=== PATIENT | female | born 1940 | race Caucasian/White ===

== ENCOUNTER 2017-09-11 13:13 | Outpatient (CLI) | payer MEDICARE, OTHER ==
[2015-09-03 19:06] VITALS: BP 188/72
--- NOTE | 2017-09-11 13:45 | Diagnostic Imaging Report ---
[facility] [address] [facility] [address] [address] Report Submission Date: Sep 11, 2017 1:44:46 PM INTERNIST MEDICAL DOCTOR MD Patient Study Name: SRIKANTH PEDROZA Date: Sep 11, 2017 1:21:34 PM INTERNIST MEDICAL DOCTOR MD Modality Type: CR Gender: F Description: LOWER EXTREMITY : 38 Institution: [facility] Physician: ABELARDO Examination: Plain film left knee History: PATIENT STATES PAIN ON ANTERIOR SIDE OF LEFT KNEE AFTER FALL. NO SURGICAL HISTORY (Hx) / INCREASED PAIN (DICOM Hx) / INCREASED PAIN (Pt comments ) Findings: 3 views of the left knee demonstrates significant tibial spine, medial /lateral, and patellar spurring. Generalized osteopenia. Significant medial articular joint space narrowing. No gross posterior soft tissue abnormality. No joint effusion. Impression: Advanced degenerative changes. No evidence for fracture. Electronically signed on Sep 11, 2017 1:44:46 PM INTERNIST MEDICAL DOCTOR MD by: Kwasi OLIVER
== END 2017-09-11 13:14 ==
LOC: RAD 13:13
PROVIDERS: ATTEND Family Medicine
DX: M25.562 Pain in left knee (principal)
CPT/HCPCS: 73562

== ENCOUNTER 2018-07-05 10:35 | Outpatient (CLI) | payer MEDICARE, OTHER ==
[2015-09-03 19:06] VITALS: BP 188/72
--- NOTE | 2018-07-06 05:05 | Diagnostic Imaging Report ---
IMMANUEL LAYNE [facility] [address] [facility] [address] [address] Report Submission Date: Jul 05, 2018 12:53:19 PM CAR PACKER Patient Study Name: SRIKANTH PEDROZA Date: Jul 05, 2018 10:44:16 AM CAR PACKER Modality Type: DX Gender: F Description: PELVIS : 38 Institution: [facility] Physician: IMMANUEL LAYNE Examination: Plain film pelvis/left hip History: PAIN AND BRUISING PATIENT STATES ACUTE PAIN AND BRUISING X 1 WEEK WITH NO KNOWN INJURY TO LEFT HIP (Hx) Comparison exams: None provided Findings: 2 views of the pelvis and left hip demonstrates normal cortical margins. No fracture. No dislocation. Superior and inferior pubic rami and iliac wings are without abnormality. The lumbar spine degenerative changes. Impression: Degenerative changes. No acute appearing osseous process. Electronically signed on Jul 05, 2018 12:53:19 PM CAR PACKER by: Kwasi OLIVER
== END 2018-07-05 10:36 ==
LOC: RAD 10:35
PROVIDERS: ATTEND Physician Assistant
DX: M25.552 Pain in left hip (principal)

== ENCOUNTER 2018-07-09 15:34 | Observation (INO) | payer MEDICARE, OTHER ==
[2018-07-09] MEDS ORDERED: fentaNYL CITRATE/PF 100 MCG/2 ML INJ. IVP ONE (16:16)
[2018-07-09 16:19] LABS: BASOPHILS % 0.3 (0.0-1.5); MONOCYTES % 8.4 % (0.0-11.0); NEUTROPHILS # 4.4 # k/uL (1.4-7.7)
[2018-07-09 16:34] LABS: eGFR (Non-African) > 60
[2018-07-09] MEDS ORDERED: PHYTONADIONE 10 MG/1 ML SUBCUT ONE (16:42)
--- NOTE | 2018-07-09 17:33 | Diagnostic Imaging Report ---
SOILA QIUROGA (FIXTURE REPAIRER FABRICATOR) - ER [facility] [address] [facility] 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 Femoral artery calcification is present. There is no femur fracture. Left knee degenerative arthritis is present. Edema is present in the subcutaneous fat of the left lower extremity. Ankle osteoarthritis is present. No intramuscular mass is seen. Impression: Subcutaneous edema Degenerative arthritis No fracture the femur or leg bones Vascular calcification Electronically signed on Jul 09, 2018 5:31:53 PM PRIMARY PRODUCTS INSPECTORS by: Chaparro OLIVER
--- NOTE | 2018-07-09 18:13 | ED Physician Documentation ---
General Adult - HISTORIAN Historian: patient - HPI Stated Complaint: Left leg pain Chief Complaint: General Adult Further Comments: yes (77 year old male patient sent in by Dr Salas from [facility] for evaluation of left hip and leg pain. Patient is on coumadin for Afib. Dr Salas concerned from hemstoma in hip; patient denies fall; had negative hip xray last week.) - ROS CONST: no problems EYES/ENT: none CVS/RESP: none GI/: none MS/SKIN/LYMPH: calf pain, joint pain (left hip), leg swelling, leg pain - PAST HX Past History: A-Fib, hypertension, other (depression, ) Allergies/Adverse Reactions: Allergies Allergy/AdvReac Type Severity Reaction Status Date / Time Sulfa (Sulfonamide Allergy Severe Shortness Verified 07/09/18 16:31 Antibiotics) of Breath [Sulfa(Sulfonamide Antibiotics)] Home Medications: Ambulatory Orders Medication Instructions Recorded Acetaminophen [Tylenol] 650 mg PO Q6 07/09/18 Acetaminophen with Codeine 1 each PO TID 07/09/18 [Tylenol with Codeine #3 Tablet] Anastrozole [Arimidex] 1 [place] [address]/09/18 Aspirin 81 mg PO DAILY 07/09/18 Buspirone HCl [BUSPAR] 5 mg PO BID 07/09/18 Furosemide [Lasix] 20 mg PO DAILY 07/09/18 Loratadine 10 mg PO DAILY 07/09/18 Losartan Potassium [Cozaar] 100 mg PO DAILY 07/09/18 Mag Hydrox/Aluminum Hyd/Simeth 30 ml PO DAILY PRN 07/09/18 [Mylanta] Magnesium Hydroxide [Milk of 2,400 mg PO DAILY 07/09/18 Magnesia] Metoclopramide HCl [Reglan] 10 mg PO 1730 07/09/18 Naproxen 500 mg PO BID PRN 07/09/18 Sotalol HCl [Betapace AF] 80 mg PO BID 07/09/18 Warfarin Sodium [Coumadin] 2.5 mg PO [id number] 07/09/18 Warfarin Sodium [Coumadin] 5 mg PO [id number] 07/09/18 amLODIPine BESYLATE [Norvasc] 10 mg PO 0900 07/09/18 diphenhydrAMINE HCL [Benadryl] 25 mg PO HS 07/09/18 - SOCIAL HX Smoking History: non-smoker - FAMILY HX Family History: No - VITAL SIGNS Vital Signs: Vital Signs Temp Pulse Resp BP Pulse Ox 97.9 F 71 19 133/51 97 07/09/18 16:13 07/09/18 16:13 07/09/18 16:13 07/09/18 16:13 07/09/18 16:13 - REVIEWED ASSESSMENTS Nursing Assessment Reviewed: Yes Vitals Reviewed: Yes Progress - Progress Progress: Case reviewed with dr Salas - CT negative for hematoma. Accepted for admission. INR 4.74 - Vit K 5m SQ given; HGB down to 8.6; last draw in January 2018 11.0 Patient has morbid obesity difficult to assess hip and leg area. Will admit for monitoring INR and HGB. Patient agrees to observation admission ED Results Lab/Radiology - Lab Results Lab Results: Lab Results 07/09/18 07/09/18 07/09/18 16:00 16:00 15:40 WBC 7.50 K/ul K/ul (4.00-12.00) RBC 3.30 M/ul L M/ul (3.90-5.20) Hgb 8.6 g/dL L g/dL (12.0-16.0) Hct 26.1 % L % (34.5-46.5) MCV 79.0 fl L fl (80.0-100.0) MCH 26.0 pg L pg (28.0-34.0) MCHC 32.9 g/dL g/dL (30.0-36.0) RDW 14.9 % H % (11.3-14.3) Plt Count 447 K/mm3 H K/mm3 (130-400) Neut % (Auto) 59.2 % % (39.0-79.0) Lymph % (Auto) 23.1 % % (16.0-50.0) Ashe % (Auto) 8.4 % % (0.0-11.0) Eos % (Auto) 9.0 % H % (0.0-6.8) Baso % (Auto) 0.3 (0.0-1.5) Neut # (Auto) 4.4 # k/uL # k/uL (1.4-7.7) Lymph # (Auto) 1.7 # k/uL # k/uL (0.6-4.0) Ashe # (Auto) 0.6 # k/uL # k/uL (0.0-0.9) Eos # (Auto) 0.7 # k/uL H # k/uL (0.0-0.6) Baso # (Auto) 0.0 # k/uL # k/uL (0.0-0.5) PT 50.6 Seconds H Seconds (9.4-11.6) INR 4.74 H (0.9-1.2) Sodium 133 mmol/L L mmol/L (136-145) Potassium 4.5 mmol/L mmol/L (3.5-5.1) Chloride 98 mmol/L mmol/L (98-107) Carbon Dioxide 31 mmol/L H mmol/L (22-30) BUN 19 mg/dL H mg/dL (7-17) Creatinine 0.90 mg/dL mg/dL (0.52-1.04) Estimated Creat Clear 107 Est GFR ( Amer) > 60 (60 - ) Est GFR (Non-Af Amer) > 60 (60 - ) Glucose 119 mg/dL H mg/dL (74-106) Calcium 8.4 mg/dL mg/dL (8.4-10.2) Total Bilirubin 0.4 mg/dL mg/dL (0.2-1.3) AST 32 U/L U/L (15-46) ALT 32 U/L U/L (13-69) Alkaline Phosphatase 118 U/L U/L (38-126) Total Protein 6.4 g/dL g/dL (6.3-8.2) Albumin 3.5 g/dL g/dL (3.5-5.0) - Orders Orders: ED Orders Category Date Time Status CT LEG W/ CONTRAST Routine Exams 07/09/18 Completed CBC/PLATELET/DIFF Stat Lab 07/09/18 15:40 Completed CMP Stat Lab 07/09/18 16:00 Completed PT-INR Stat Lab 07/09/18 16:00 Completed Phytonadione (Vit K1) [Vitamin K] Med 07/09/18 16:42 Discontinued 5 mg SUBCUT NOW ONE fentaNYL CITRATE/PF [Duragesic] Med 07/09/18 16:16 Discontinued 50 mcg IVP NOW ONE General Adult Physical Exam - PHYSICAL EXAM GENERAL APPEARANCE: moderate distress EENT: eye inspection normal, MARTIN RESPIRATORY: no resp distress, chest non-tender, breath sounds normal CVS: heart sounds normal, equal pulses, no murmur, no gallop, PMI nml, no JVD, no friction rub, irregularly irregular rhy ABDOMEN: soft, no organomegaly, normal bowel sounds, no abdominal bruit, no distension, other (morbid obesity) BACK: normal inspection, no CVA tenderness SKIN: normal color, warm/dry, NR, INT, PAL, DR EXTREMITIES: edema (left lateral calf with edema and ecchymosis - PPP 2+ DP and PT; left lateral thigh area with ecchymosis) NEURO: oriented X3, motor nml, sensation nml, mood/affect nml Discharge Clincal Impression: Hypoprothrombinemia, Weakness generalized Anemia Qualifiers: Anemia type: unspecified type Qualified Code(s): D64.9 - Anemia, unspecified Condition: Stable Disposition: ADMITTED INPATIENT Decision to Admit: [id number] Decision Time: 18:00
[2018-07-09 19:12] VITALS: BMI 42.4
[2018-07-09] MEDS: traMADol HCL 50 MG TABLET PO PRN (21:28)
[2018-07-10] MEDS: ACETAMINOPHEN 325 MG TABLET PO PRN ×2 (00:05→07:15)
[2018-07-10] MEDS: traMADol HCL 50 MG TABLET PO PRN (05:03)
[2018-07-10 07:41] LABS: BASOPHILS % 0.3 (0.0-1.5); EOSINOPHILS % 5.6 % (0.0-6.8); MEAN CORPUSCULAR HEMOGLOBIN 25.6 pg (28.0-34.0); NEUTROPHILS # 7.2 # k/uL (1.4-7.7)
[2018-07-10] MEDS ORDERED: ASPIRIN EC 81 MG TABLET.DR ONE (08:49)
[2018-07-10] MEDS ORDERED: LORATADINE 10 MG TABLET PO SCH (09:00)
[2018-07-10] MEDS ORDERED: amLODIPine BESYLATE 5 MG TABLET PO SCH (09:00)
[2018-07-10] MEDS ORDERED: ASPIRIN 81 MG CHEW TAB PO SCH (09:00)
[2018-07-10] MEDS ORDERED: LOSARTAN POTASSIUM 50 MG TABLET PO SCH (09:00)
[2018-07-10] MEDS ORDERED: SOTALOL HCL 80 MG TABLET PO SCH (09:00)
[2018-07-10] MEDS ORDERED: BUSPIRONE HCL 5 MG TABLET PO SCH (09:00)
[2018-07-10] MEDS ORDERED: ACETAMINOPHEN WITH CODEINE 300MG/30MG TABLET PO PRN (09:53)
--- NOTE | 2018-07-10 16:57 | Diagnostic Imaging Report ---
BRIANNA DOUGHERTY [facility] [address] [facility] [address] Report Submission Date: Jul 10, 2018 1:59:32 PM CAREER AGENT Patient Study Name: SRIKANTH PEDROZA Date: Jul 10, 2018 8:04:00 AM CAREER AGENT Modality Type: US Gender: F Description: [facility] : 38 Institution: [facility] Physician: BRIANNA DOUGHERTY Examination: Ultrasound left vein History: LEFT LOWER EXTREMITY PAIN POST FALL Findings: Sonographic evaluation of the left lower extremity venous system from the groin to the popliteal fossa inclusive. Normal compressibility. No luminal filling defect. Normal waveforms and response to augmentation. No popliteal region fluid collection. Calf vasculature not visualized. Impression: No evidence for deep venous thrombosis. Electronically signed on Jul 10, 2018 1:59:32 PM CAREER AGENT by: Kwasi OLIVER
[2018-07-10] MEDS ORDERED: METOCLOPRAMIDE HCL 5 MG TABLET PO SCH (17:30)
[2018-07-10 18:09] VITALS: BP 144/66
== END 2018-07-10 14:30 ==
LOC: ED 15:34 → SOUTH 18:19
PROVIDERS: ADMIT Family Medicine; ATTEND Family Medicine
DX: E87.6 Hypokalemia (principal); D64.9 Anemia, unspecified; E66.01 Morbid (severe) obesity due to excess calories; M79.605 Pain in left leg
CPT/HCPCS: 73701; 80053; 85025; 85610; 93971; 96374; 99284; J3430; G0378; S1016

== ENCOUNTER 2018-10-01 13:31 | Outpatient (CLI) | payer MEDICARE, OTHER ==
[2018-10-01 14:22] LABS: eGFR (Non-African) 36
--- NOTE | 2018-10-01 14:48 | Diagnostic Imaging Report ---
BRIANNA DOUGHERTY [facility] [address] [address] Report Submission Date: Oct 01, 2018 2:30:01 PM GLOBAL EXPANSION SALES DIRECTOR Patient Study Name: SRIKANTH PEDROZA Date: Oct 01, 2018 1:49:43 PM GLOBAL EXPANSION SALES DIRECTOR Modality Type: DX Gender: F Description: WRIST 3 VIEWS OR MORE : 38 Institution: [facility] Physician: BRIANNA DOUGHERTY Left wrist History: Fell last Monday Three views of the left wrist were obtained which demonstrate advanced osteoarthritis involving the 1st and 2nd metacarpal-carpal joint spaces and the triscaphe joint. There is moderate narrowing of radiocarpal joint space. There is a nondisplaced ulnar styloid avulsion. There is a complete and displaced compression fracture of the distal radius. The distal fracture fragment has displaced radially and volarly by approximately 1 cm. The scaphoid is intact. The bones are demineralized. Impression: Acute, nondisplaced ulnar styloid avulsion. Acute, complete and displaced, impacted distal radial fracture as described. Moderate narrowing of radiocarpal joint space. Advanced osteoarthritis involving the triscaphe joint and the 1st and 2nd metacarpal carpal joint spaces. Electronically signed on Oct 01, 2018 2:30:01 PM JOHN by: Kadi OLIVER
--- NOTE | 2018-10-01 15:32 | Diagnostic Imaging Report ---
BRIANNA DOUGHERTY [facility] [address] [facility] [address] [address] Report Submission Date: Oct 01, 2018 3:30:35 PM OIL HOUSE ATTENDANT Patient Study Name: SRIKANTH PEDROZA Date: Oct 01, 2018 2:28:38 PM OIL HOUSE ATTENDANT Modality Type: DX Gender: F Description: CHEST 2VIEW : 38 Institution: [facility] Physician: BRIANNA DOUGHERTY Examination: PA and lateral chest. History: Evaluate lung lau. Comparison exam: None provided. Findings: PA and lateral views of the chest demonstrates a prominent cardiac and mediastinal silhouette. Tortuous aorta with vascular calcifications. Chronic interstitial changes. No costophrenic margin blunting. Scattered granuloma. Possible fullness right upper lung. Advanced articular degenerative changes. Impression: Chronic interstitial changes. No acute appearing pulmonary process. Questionable fullness right upper lung: density vs granuloma. Correlation with older studies recommended, if available. If none available, consider obtaining CT chest to further evaluate. Electronically signed on Oct 01, 2018 3:30:35 PM OIL HOUSE ATTENDANT by: Kwasi OLIVER
[2018-10-17 15:22] LABS: eGFR (Non-African) 32
== END 2018-10-01 13:33 ==
LOC: LAB 13:31
PROVIDERS: ATTEND Family Medicine
DX: S52.612A Displaced fracture of left ulna styloid process, initial encounter for closed fracture (principal); S52.502A Unspecified fracture of the lower end of left radius, initial encounter for closed fracture; W19.XXXA Unspecified fall, initial encounter; I10 Essential (primary) hypertension; C50.919 Malignant neoplasm of unspecified site of unspecified female breast; M25.519 Pain in unspecified shoulder; F32.9 Major depressive disorder, single episode, unspecified; F41.0 Panic disorder [episodic paroxysmal anxiety]; K21.9 Gastro-esophageal reflux disease without esophagitis
CPT/HCPCS: 36415; 71046; 73110; 80048; 80053; 83880

== ENCOUNTER 2018-10-17 13:51 | Outpatient (CLI) | payer MEDICARE, OTHER ==
--- NOTE | 2018-10-17 17:38 | Diagnostic Imaging Report ---
BRIANNA DOUGHERTY [facility] [address] [facility] [address] [address] Report Submission Date: Oct 17, 2018 5:16:12 PM CDT Patient Study Name: SRIKANTH PEDROZA Date: Oct 17, 2018 3:25:01 PM CDT Modality Type: CT\SR Gender: F Description: CT CHEST W/ CONTRAST : 38 Institution: [facility] Physician: BRIANNA DOUGHERTY CT chest with contrast History: Lung infection Technique: Helically acquired images were obtained from the thoracic inlet to the adrenal glands following IV contrast. Findings: Aside from a single calcified granuloma mid right lung, the lungs are clear. The abdominal aorta is normal in caliber. There is no mediastinal or hilar lymphadenopathy. There is no pericardial or pleural effusion. There is a small hiatal hernia. Adrenal glands are normal. Severely advanced degenerative findings of the shoulder joints are present. There is mild S-shaped scoliosis of thoracic spine. Impression: No acute intrathoracic abnormality. Old granulomatous disease. Small hiatal hernia. Advanced degenerative findings of both shoulders. Electronically signed on Oct 17, 2018 5:16:12 PM CDT by: Kadi OLIVER
== END 2018-10-17 13:53 ==
LOC: RAD 13:51
PROVIDERS: ATTEND Family Medicine
DX: R06.00 Dyspnea, unspecified (principal); K44.9 Diaphragmatic hernia without obstruction or gangrene
CPT/HCPCS: 71260; Q9967